=== PATIENT | female | born 1960 | race Caucasian/White ===

== ENCOUNTER 2022-04-15 07:54 | Observation (INO) ==
--- NOTE | 2022-04-10 15:25 | Anesthesiology Consultation ---
Date of Service April 10, 2022 Assessment & Plan (1) Encounter for pre-operative examination: Plan - check BSG am DOS. - right arm restriction. - PCP clearance 03/25/22: "...pre op clearance right total knee...intermediate risk...previously scheduled for right TKA on 02/25/22, however the surgery had to be delayed due to an UTI...all urinary symptoms have resolved; also with no further concerns of yeast infection...RCRI class I...medically optimized to proceed with surgical intervention..." - Outpatient joint assessment: Patient is currently scheduled for inpatient pathway. If re-evaluated pending system levels during current pandemic/surgeon requests outpatient pathway, patient is not recommended candidate for outpatient joint program from anesthesia standpoint. - COVID screening: Per cribber on 04/10/2022: Travel screen negative, no known COVID-19 positive contacts or current COVID-19 related symptoms in past 2 weeks. To surgeon's discretion if preop COVID testing is needed. Chart Review Chart Review: Acceptable Risk for Surgery and Patient NOT seen in Pre Admission Testing History Surgery Operation Date: 04/15/22 07:00 Proposed Procedures p Right Total Knee Arthroplasty - Wolfgang Bajwa MD Height/Weight Height: 4 ft 11 in Weight: 108.409 kg Allergies Allergy/AdvReac Type Severity Reaction Status Date / Time Penicillins Allergy Intermediate Rash Verified 03/13/22 13:05 Sulfa (Sulfonamide Allergy Intermediate Rash Verified 03/13/22 13:05 Antibiotics) Medications Home Medications Medication Instructions Recorded Confirmed Last Taken chlorthalidone 25 mg tablet 25 mg PO QAM 11/29/20 04/10/22 02/24/22 10:00 duloxetine 60 mg capsule,delayed 90 mg PO QAM 11/29/20 04/10/22 02/25/22 06:00 release (Cymbalta) lisinopril 40 mg tablet 40 mg PO QDL 11/29/20 04/10/22 02/24/22 23:00 oxycodone-acetaminophen 10 mg-325 1 tab PO TID PRN Pain 11/29/20 04/10/22 02/25/22 06:00 mg tablet (Percocet) zolpidem 10 mg tablet (Ambien) 10 mg PO HS 11/29/20 04/10/22 02/24/22 23:00 albuterol sulfate 90 mcg/actuation 2 puff inhalation QID PRN 12/09/21 04/10/22 02/24/22 23:00 aerosol inhaler (Ventolin HFA) Shortness Of Breath Or Wheezing gabapentin 600 mg tablet 1,800 mg PO HS 12/09/21 04/10/22 02/24/22 19:00 levothyroxine 137 mcg tablet 137 mcg PO QAM 12/09/21 04/10/22 02/25/22 06:00 pantoprazole 40 mg tablet,delayed 40 mg PO QDL 12/09/21 04/10/22 02/24/22 12:00 release sitagliptin phosphate 100 mg 100 mg PO QAM 12/09/21 04/10/22 02/24/22 10:00 tablet (Januvia) Past Medical History Medical History Asthma WELL CONTROLLED W/ INHALER, USES ABOUT ONCE PER WEEK Depression Diabetes NIDDM Fibromyalgia GERD (gastroesophageal reflux disease) controlled, stable per pt History of blood transfusion 1970s during miscarriage History of COVID-19 07/2021- CROFT, NASAL CONGESTION, COUGH-- NO HOSPITALZATION, RESOLVED 02/2020-CROFT, NASAL CONGESTION, BODY ACHES, FATIGUE-RESOLVED 04/2021-" " History of esophageal dilatation pt states last performed 12/2018, infrequent sensation of difficulty swallowing, denies choking History of malignant neoplasm of breast right arm restriction History of seizure LAST ONE- 2 1/2 YRS- CONTROLLED W/ GABAPENTIN HTN (hypertension) controlled, stable per pt Hx of breast cancer 2019 RADIATION ~ FOLLOWS W/ DR [facility]-right arm restriction Hypothyroid Limb alert care status right arm restriction Morbid obesity Sinus infection reason for abx. last dose 01/23/22-pt reports symptoms have fully resolved Sleep apnea not currently using CPAP d/t difficulty obtaining supplies Past Family History Family History Mother Breast cancer, Onset Age: 65 Cervical cancer, Onset Age: 40 Myocardial infarction Grandmother (Maternal) Myocardial infarction Grandfather (Maternal) Stroke Denies family history of Ovarian cancer Prostate cancer Colorectal cancer Past Surgical History Surgical History H/O splenectomy H/O thyroidectomy History of cholecystectomy History of esophagogastroduodenoscopy (EGD) History of total left knee replacement Hx of cardiac catheterization >20 YRS AGO - NO STENTS, NO BLOCKAGE FOUND Hx of colonoscopy Hx of mastectomy W/ RECONSTRUCTION Hx of rotator cuff surgery LEFT Hx of tonsillectomy Hx of tubal ligation S/P appendectomy Social History Smoking Status: Never smoker Do You Dip or Chew Tobacco: No Hx Alcohol Use: No Hx Substance Use: No substance use type: does not use Testing Laboratory Results 04/08/2022 WBC: 7 H/H: 12/38 PLATELETS: 411 SODIUM: 137 POTASSIUM: 3.5 CHLORIDE: 99 CO2: 32 BUN: 17 CREATININE: 1.1 GLUCOSE: 107 PT: 11 PTT: 28 INR: 1 Electrocardiogram Date: 02/07/22 NSR, rate 70 bpm Cannot rule out inferior infarct, age undetermined Chest X-Ray Date: 02/07/22 Cardiomediastinal and hilar silhouettes are within normal limits. Atherosclerosis of the aorta. There is no pneumothorax, pleural effusion, or overt pulmonary edema. Mild interstitial coarsening of the lung bases. Degenerative changes of the shoulders and spine. Surgical clips project over the left abdomen. IMPRESSION: No acute process Other Testing Whole body scan 12/26/21 No suspicious areas of radiotracer uptake to suggest metastatic disease.
[~2022-04-15 07:54] MED LIST: ACETAMINOPHEN 500 MG TAB PO SCH; BUPIVACAINE 0.5 % 5 MG/1 ML MPF 30ML VIAL ONE; CeleBREX 200 MG CAP PO SCH; EPINEPHrine INJ 1 MG/ML AMP ONE; FAMOTIDINE 20 MG TAB PO SCH; GABAPENTIN 600 MG DOSE PO SCH; LR 500ML BOLUS, THEN 15ML/HR IV SCH; METOCLOPRAMIDE HCL 10 MG TABLET PO SCH; ROPIVACAINE 0.5% 5 MG/ML 30 ML VIAL ONE; ROPIVACAINE 0.5% HCL/PF 150 MG, BUPIVACAINE 0.75% MPF 20 ML, EPINEPHrine 0.15 MG, Ketor... INFIL SCH; TRANEXAMIC ACID 1,000 MG **IV Intra-op IV SCH; TRANEXAMIC ACID 1,000 MG **IV Pre-op IV SCH; ceFAZolin 2000MG 2,000 MG/15 ML SYR IV SCH; cloNIDine HCL 0.1 MG/24 HR TRANSDERM SYS TD SCH; dexAMETHasone 4 MG TAB PO SCH; oxyCODONE HCL 10 MG TABCR (OxyCONTIN) PO SCH
[2022-04-15] MEDS ORDERED: PROPOFOL IV EMULSION 10 MG/ML 20 ML VIAL IV ONE ×2 (08:14→12:36)
[2022-04-15] MEDS ORDERED: MIDAZOLAM HCL 1 MG/ML 2ML VIAL ONE ×3 (08:14→11:11)
--- NOTE | 2022-04-15 08:56 | History & Physical Bridge Note ---
Date of Service April 15, 2022 History & Physical Bridge Note I have examined the patient, reviewed the History & Physical and in the interval since the performance of the History & Physical I have noted the following changes of clinical significance: no changes noted
[2022-04-15] MEDS: CHECK CLONIDINE PATCH PLACEMENT SCH ×4 (08:59→23:03)
[2022-04-15] MEDS ORDERED: ORTHO JOINT ANESTHETIC ONE (09:42)
[2022-04-15] MEDS ORDERED: VANCOMYCIN HCL 1000MG/20ML VIAL ONE (09:42)
[2022-04-15] MEDS ORDERED: ePHEDrine sulfate 50 MG/ML AMP ONE (10:23)
[2022-04-15] MEDS ORDERED: PHENYLEPHRINE 100MCG/ML 5ML SYR ONE (10:23)
[2022-04-15] MEDS ORDERED: PHENYLEPHRINE HCL 10 MG/ML VIAL ONE (10:54)
--- NOTE | 2022-04-15 12:45 | Operative Report ---
Post Operative Report Pre & Post Diagnosis Operation Date: 04/15/22 09:50 Pre-Op Diagnosis: Right knee osteoarthritis. Post-Op Diagnosis: Right knee osteoarthritis. I identified the patient and participated in the time-out.: Yes Procedure Operation Date: 04/15/22 09:50 Actual Procedures p Right Total Knee Arthroplasty(Right) - Wolfgang Bajwa MD Surgeon Wolfgang Bajwa MD Rat Trapper Alfreda Macdonald no resident or fellow available Estimated Blood Loss 10 Findings Consistent with Post-Op Diagnosis Specimens Bone and soft tissue right knee Drains None Anesthesia Type MAC Spinal Regional Complications none Disposition Accompanied Patient To Recovery: No Disposition: Recovery Room Indications Lily is 61 years old and has severe osteoarthritis of her right knee refractory to nonsurgical treatment. She wishes to have her knee replaced. Description of Procedure Informed consent obtained. Patient identified. She identified the operative site as the right knee. I marked with my initials. Preoperative surgical timeout performed. Preop dose of IV antibiotics given. TXA given. She was positioned supine on the OR table. A bump under the right hip. A padded post under the right calf and a tourniquet on the right thigh. The leg was prescribed and then prepped and draped in the usual sterile fashion. DVT prophylaxis intraoperatively with foot pumps. Postoperatively mechanical devices Lovenox and early mobility. The examination under anesthesia revealed 1+ MCL laxity in mid position otherwise stable range of motion 0/5/110. Limb exsanguinated with the Esmarch. Tourniquet inflated 275 mmHg. Midline longitudinal incision made. Approximately 20 cm. Extended distally to avoid tension on the apex of the incision. This was followed by medial parapatellar arthrotomy. There was severe arthritis of the patella with substantial wear of the lateral facet. Large osteophytes were removed about the patella. There are also significant osteophytes about the femur especially medial and tibia medially. There was grade 4 change with worn eburnated bone in the medial compartment with a deficient medial meniscus. Intact cruciates. Notch osteophytes. Intact lateral meniscus and lateral cartilage. No loose bodies were identified. The soft tissue on the anterior aspect of the distal femur was resected. The retropatellar fat pad was resected. An extensile medial release was performed. The synovial reflection in the lateral gutter was released. Cruciate ligaments were resected after gently flexing the knee with the patella everted. The tibia was then subluxated and the remnants of the menisci and osteophytes and further medial releasing were performed. A instructor pilot hole was drilled into the proximal tibia just in front of and between the tibial spines. The intramedullary alignment christopher was introduced and aligned with the tibial tubercle. Set to resect 10 off of the lateral high side corresponding to a 4 mm cut medially. The guide was pinned into place and this cut was made. 0 degree block. Sized to a 2.0. Attention was turned to the femur where a instructor pilot hole was drilled into the distal femur just above the PCL. The guide was inserted and set to resect 14 mm of bone at a 6 degree right knee valgus angle based upon preoperative templating and flexion contracture. The collateral ligaments were protected and this cut was distal to the collateral ligaments. The cut was made. The epicondylar axis was marked out. The extension gap was a symmetric 10. The distal femoral sizing guide was applied. Sized to a 2.5. External rotation drill holes were made which matched the epicondylar axis. Anterior posterior and chamfer cuts were made protecting the collateral ligaments. The box cutting guide was applied and lateralized pinned in place and the box cut was made. Osteophytes in the back of the knee were removed. The flexion gap was a loose 10. I then upsized the 12.5 and had good stability in 90 degrees flexion and full extension without flexion contracture. The extension gap was also symmetric 12.5. The size 2.5 trial femur was applied. The tibia was exposed. The tibial tray was aligned to the tibial tubercle lateralized as far as possible with some exposed posterior medial bone and full coverage of the plate. It was pinned into place and then the keel was drilled and punched. Trialing was then performed showing full extension of the knee neutral alignment no laxity at full extension trace MCL laxity in mid position and 90 degrees flexion otherwise stable. Attention was turned to the patella. Patellar thickness was measured at 20 however the lateral facet was substantially warned and was probably about 12 mm thick. I set the guide to preserve 13 mm of bone applied it with the patella centralized and not tilted. The cut was made which gave a skim cut laterally. The residual patellar thickness was 12 mm. The 32 mm paddle was applied distal lysed and medialized. It was then aligned to the trochlea with the knee in slight flexion. The lug holes were drilled. Patellar tracking was lateral with no hands technique. The trial components were removed from the knee the bony surfaces were meticulously prepared with pulsatile lavage and the canals were plugged. Ortho joint mix was injected into the back the knee. 2 bags of Simplex P cement were mixed with 4 g of powdered vancomycin. Smears were placed on the posterior condyles and while in a doughy workable state the femur tibia and patella were cemented into place held and placed in full extension with clamp on the patella. Extraneous cement was removed. The remainder the Ortho joint mix was injected and the knee was thoroughly irrigated. Soft tissue was kept moist throughout the surgical procedure with a lap sponge. After the cemented hardened at 100 minutes the tourniquet was let down and meticulous hemostasis was performed with minimal bleeding. Composite patellar thickness was 20 mm. When the extensor mechanism was close gravity assisted flexion was 110 degrees. Patellar tracking with a tourniquet let down was fine and no lateral release was required. Stability was as mentioned previously and the final 12.5 mm thick poly was inserted. The back the knee was inspected for cement and removed were encountered. Irrigation was performed and meticulous hemostasis was achieved. The knee was reduced and then closed. The extensor mechanism was closed above the equator of the patella with interrupted #2 FiberWire. Below the equator the patella with running and interrupted #1 Vicryl. The skin was closed in layers with 0 and 2-0 Vicryl followed by natan on the skin. The leg was cleaned with wet and dry sponges and a soft roll dressing was applied Xeroform 4 x 4 ABD soft wrap full-length Yared wrap and a knee immobilizer. Patient was then awake from anesthesia without difficulty and taken to the recovery room in stable condition. There were no complications. Counts were correct. Resected bone and soft tissue were sent for specimen. At the conclusion of the operation I contacted patient's family informed of my findings and discussed the surgical procedure. Blood loss estimated to be 10 cc. A second dose of TXA was given. She will be rehabilitated according to the total knee protocol. She can weight-bear as tolerated. We will apply a incisional wound VAC tomorrow. Components inserted with a [employer] PFC Sigma rotating platform knee a size 2.5 right posterior stabilized femur 32 mm 3 peg oval dome patella size 2 mobile-bearing keeled tibial tray and a size 2.5 x 12.5 mm thick polyethylene posterior stabilized insert. I attest to the content of the Intraoperative Record and any orders documented therein. Any exceptions are noted below.
--- NOTE | 2022-04-15 12:53 | Operative Report ---
Post Operative Report Pre & Post Diagnosis Operation Date: 04/15/22 09:50 Pre-Op Diagnosis: Right knee osteoarthritis. Post-Op Diagnosis: Right knee osteoarthritis. I identified the patient and participated in the time-out.: Yes Procedure Operation Date: 04/15/22 09:50 Actual Procedures p Right Total Knee Arthroplasty(Right) - Wolfgang Bajwa MD Surgeon Wolfgang Bajwa M.D. Fish Trapper Alfreda Macdonald PA-C; no resident or fellow available Estimated Blood Loss 10 Findings Consistent with Post-Op Diagnosis Specimens bone and soft tissue Anesthesia Type General Regional Description of Procedure Patient was taken to the operating room, placed under general anesthesia. Time out performed, prepped and draped in routine sterile fashion. I was present during the entire case, please see Dr. Bajwa's operative report for further detail. Patient was awakened and taken to the recovery room in stable c ondition. I attest to the content of the Intraoperative Record and any orders documented therein. Any exceptions are noted below.
--- NOTE | 2022-04-15 13:08 | Anesthesiology Progress Note ---
Date of Service April 15, 2022 Anesthesia Post Procedure Vital Signs Vital Signs: Temp Pulse Pulse Resp BP Pulse Ox O2 Del Method 04/15/22 13:00 36.6 C 98 H 12 124/63 96 Nasal Cannula 04/15/22 12:50 36.6 C 96 H 17 121/64 96 Nasal Cannula 04/15/22 12:39 36.6 C 100 H 14 121/65 98 Oxymask 04/15/22 08:34 Room Air 04/15/22 08:34 36.7 C 75 16 151/81 H 98 Room Air O2 Flow Rate 04/15/22 13:00 3 04/15/22 12:50 3 04/15/22 12:39 7 04/15/22 08:34 04/15/22 08:34 Pain Intensity Right Knee: Pain Intensity: 0 Transfer of Care Handoff Completed per policy Notes Mental Status: alert / awake / arousable Patient Amnestic to Procedure: Yes Nausea / Vomiting: adequately controlled Pain: adequately controlled Airway Patency, RR, SpO2: stable & adequate BP & HR: stable & adequate Hydration State: stable & adequate Neuraxial Anesthesia: was administered and sensory block is resolving Anesthetic Complications: no major complications apparent
--- NOTE | 2022-04-15 13:47 | XRay Report ---
XR knee RT 1 or 2V routine HISTORY: 61 years-old Female Surgical Post Op right knee arthroplasty COMPARISON: 02/07/2022 TECHNIQUE: 2 views of the right knee FINDINGS: Total joint arthroplasty with patellar resurfacing. Anterior midline skin natan are noted along wit h expected postoperative soft tissue swelling with deep tissue air. No acute fracture, dislocation or unexpected opaque foreign body. IMPRESSION: Total joint arthroplasty with expected postoperative changes. ACT 112: Negative or not required by law. The above report was generated using voice recognition software. It may contain grammatical, syntax o r spelling errors. Electronically signed by: Brennan Person M.D. 04/15/2022 1:45 PM
[2022-04-15] MEDS ORDERED: ONDANSETRON INJ 2 MG/ML 2 ML VIAL IV PRN (14:01)
[2022-04-15] MEDS ORDERED: NALOXONE HCL 0.4 MG/1 ML VIAL/CARP IV PRN (14:01)
[2022-04-15] MEDS ORDERED: hydrALAZINE HCL 20 MG/ML VIAL IV PRN (14:01)
[2022-04-15] MEDS ORDERED: ALBUTEROL HFA 8 GM INHALER INH PRN (14:01)
[2022-04-15] MEDS ORDERED: MAGNESIUM HYDROXIDE SUSP 30 ML UDC PO PRN (14:01)
[2022-04-15] MEDS ORDERED: bisacodyL 10 MG SUPP PR PRN (14:01)
[2022-04-15] MEDS ORDERED: PHARMACY GLYCEMIC MGMT CONSULT PRN (14:01)
[2022-04-15] MEDS ORDERED: traMADol HCL 50 MG TABLET PO PRN (14:01)
[2022-04-15] MEDS ORDERED: SODIUM CHLORIDE 0.9% 1000ML 1,000 ML IV SCH (14:01)
[2022-04-15] MEDS ORDERED: NovoLIN-N (NPH) PER UNIT CHARGE SQ ONE (14:45)
[2022-04-15] MEDS: KETOROLAC TROMETHAMINE 15 MG/ML VIAL IV SCH ×2 (15:23→21:35)
[2022-04-15] MEDS: INSULIN ASPART PER UNIT SC SCH ×3 (15:30→21:34)
[2022-04-15] MEDS: oxyCODONE/ACETAMINOPHEN 10-325 TAB PO PRN (16:34)
[2022-04-15] MEDS: ceFAZolin 2000MG 2,000 MG/15 ML SYR IV SCH (18:30)
--- NOTE | 2022-04-15 18:33 | Orthopedic Progress Note ---
Date of Service April 15, 2022 Assessment & Plan (1) Status post total right knee replacement: Plan: POD 0 - right TKA with Dr. Bajwa PT/OT as ordered Glycemic control consult Regular diet Lovenox to start tonight - 30mg BID x 2-4 weeks post op. Ice and elevation PRN pain/swelling Keep dressing intact, reinforce as needed, will plan to apply Prevena tomorrow. Dr. Bajwa present for today's visit Will re-eval in AM Case management for disposition needs Pain medication as prescribed. Admission and Anticipated Discharge Date Admission Date: April 15, 2022 Subjective Patient resting in bed. Comfortable now, but had "excruciating pain" earlier. She is tolerating regular diet. Has been out of bed to the bathroom. Physical Exam Musculoskeletal: Dressing right knee clean, dry and intact. Distal pulses 1+, foot is warm, norm al sensation. Strength right ankle 5/5. Results & Data ([facility]) Vital Signs (Past 12 Hours) Vital Signs Temp Pulse Pulse Resp BP BP Pulse Ox 04/15/22 18:13 36.7 C 98 H 17 108/63 94 04/15/22 17:02 36.4 C L 99 H 18 107/65 93 04/15/22 16:03 36.6 C 90 18 127/74 93 04/15/22 15:06 36.7 C 93 H 17 119/77 95 04/15/22 14:30 36.4 C L 95 H 18 127/78 95 04/15/22 14:03 36.4 C L 100 H 17 106/65 95 04/15/22 13:30 36.6 C 97 H 10 L 119/63 95 04/15/22 13:15 36.6 C 96 H 12 120/66 95 04/15/22 13:10 36.6 C 98 H 12 121/70 96 04/15/22 13:00 36.6 C 98 H 12 124/63 96 04/15/22 12:50 36.6 C 96 H 17 121/64 96 04/15/22 12:39 36.6 C 100 H 14 121/65 98 04/15/22 08:34 04/15/22 08:34 36.7 C 75 16 151/81 H 98 O2 Del Method O2 Flow Rate 04/15/22 18:13 Room Air 04/15/22 17:02 Room Air 04/15/22 16:03 Room Air 04/15/22 15:06 Room Air 04/15/22 14:30 Nasal Cannula 2 04/15/22 14:03 Nasal Cannula 2.5 04/15/22 13:30 Nasal Cannula 3 04/15/22 13:15 Nasal Cannula 3 04/15/22 13:10 Nasal Cannula 3 04/15/22 13:00 Nasal Cannula 3 04/15/22 12:50 Nasal Cannula 3 04/15/22 12:39 Oxymask 7 04/15/22 08:34 Room Air 04/15/22 08:34 Room Air Diagnostic Findings XR knee RT 1 or 2V routine HISTORY: 61 years-old Female Surgical Post Op right knee arthroplasty COMPARISON: 02/07/2022 TECHNIQUE: 2 views of the right knee FINDINGS: Total joint arthroplasty with patellar resurfacing. Anterior midline skin natan are noted along with expected postoperative soft tissue swelling with deep tissue air. No acute fracture, dislocation or unexpected opaque foreign body. IMPRESSION: Total joint arthroplasty with expected postoperative changes.
[2022-04-15] MEDS: ENOXAPARIN INJ 30 MG/0.3 ML SYR SQ SCH (20:13)
[2022-04-15] MEDS: DOCUSATE SODIUM 100 MG CAP PO SCH (20:14)
[2022-04-15] MEDS: GABAPENTIN 600 MG TAB PO SCH (20:15)
[2022-04-15] MEDS: SENNA 8.6 MG TAB PO SCH (20:15)
[2022-04-15] MEDS: HYDROmorphone INJ 0.5 MG/0.5 ML SYR IV PRN (23:11)
[2022-04-16] MEDS: ceFAZolin 2000MG 2,000 MG/15 ML SYR IV SCH (02:24)
[2022-04-16] MEDS: oxyCODONE/ACETAMINOPHEN 10-325 TAB PO PRN ×2 (02:30→12:55)
[2022-04-16] MEDS: KETOROLAC TROMETHAMINE 15 MG/ML VIAL IV SCH ×2 (04:15→09:53)
[2022-04-16] MEDS: LEVOTHYROXINE SODIUM 137 MCG TABLET PO SCH (05:46)
[2022-04-16 07:36] LABS: Hematocrit (blood only) 28.7 % (37.0-47.0); Hemoglobin 9.9 g/dl (12.0-16.0); Mean Corpuscular Hemoglobin 33.3 pg (25.0-34.0); Mean Corpuscular Hgb Conc 34.5 g/dL (32.0-36.0); Mean Corpuscular Volume 96.6 fL (80.0-100.0); Mean Platelet Volume 10.2 fL (9.4-12.4); Platelet Count 333 K/uL (130-400); RDW Coefficient of Variation 12.8 % (11.5-14.5); RDW Standard Deviation 45.5 fL (36.4-46.3); Red Blood Count 2.97 M/uL (4.20-5.40); White Blood Count 16.84 K/ul (4.8-10.8)
[2022-04-16 07:48] LABS: BUN Creatinine Ratio 22.4 (10-20); Calcium 9.1 mg/dl (8.5-10.1); Creatinine Clr Calc Pharmacy 60.6 ml/min; Est GFR (African American) 64.9 ml/min; Potassium 4.2 mmol/L (3.5-5.1)
[2022-04-16] MEDS: CHECK CLONIDINE PATCH PLACEMENT SCH ×3 (08:07→23:12)
[2022-04-16] MEDS: CHLORTHALIDONE 25 MG TAB PO SCH (08:08)
[2022-04-16] MEDS: DULoxetine HCL 30 MG CAP PO SCH (08:09)
[2022-04-16] MEDS: MULTIVITAMIN TAB PO SCH (08:10)
[2022-04-16] MEDS: DOCUSATE SODIUM 100 MG CAP PO SCH ×2 (08:10→19:47)
[2022-04-16] MEDS ORDERED: SITagliptin PHOSPHATE 100 MG TAB PO SCH (09:00)
[2022-04-16] MEDS: oxyCODONE HCL IR 5 MG TAB (IMMEDIATE RELEASE) PO PRN ×2 (09:04→19:46)
[2022-04-16] MEDS: INSULIN ASPART PER UNIT SC SCH ×4 (09:06→20:52)
[2022-04-16] MEDS: ENOXAPARIN INJ 30 MG/0.3 ML SYR SQ SCH ×2 (09:50→19:47)
--- NOTE | 2022-04-16 10:15 | Discharge Summary ---
Date of Service April 16, 2022 Discharge Data Procedures Performed Operation Date: 04/15/22 09:50 Actual Procedures p Right Total Knee Arthroplasty(Right) - Wolfgang Bajwa MD Hospital Course (1) Status post total right knee replacement: Patient was admitted to [facility] for observation after undergoing an elective left total knee arthroplasty by Dr. Bajwa on April 07, 2022. Her surgery was performed with spinal anesthesia with peripheral nerve block. She tolerated the procedure well without any intraoperative complications. She was given 2 g of IV Ancef for surgical prophylaxis which was continued for 24 hours after surgery. Postoperative x-rays were done in the recovery room which showed a stable prosthesis of her left knee. She was allowed out of bed, weightbearing as tolerated with the assistance of a walker and a knee immobilizer. Physical therapy and Occupational Therapy consults were placed for evaluation prior to discharge. Her home medications were resumed. A glycemic consult was placed for inpatient management of her Diabetes. She was started on Lovenox 30 mg twice daily for DVT prophylaxis which will be continued for 2 to 4 weeks after surgery. She was provided pain medication after surgery which included Toradol, tramadol, oxycodone, IV Dilaudid and oral Tylenol. In addition to her Percocet 10-325 mg every 8 hours. Postoperative CBC, BMP was performed and within normal limits. She was too painful to leave on post op day 1, she continued to require IV dilaudid for control. On postoperative day 1 her surgical dressing was removed and a Prevena incisional wound VAC was applied. This will remain on for 7 days. She was kept another day for pain control. She was deemed safe for discharge to her home with the physical therapist and occupational therapist on POD 2. Case management was involved for disposition needs. She was discharged to her home in stable condition with home health services on April 17, 2022. Discharge instructions were provided. All questions were answered.
[2022-04-16] MEDS: PANTOprazole 40 MG TAB PO SCH (11:41)
[2022-04-16] MEDS: lisinopril 40 MG TAB PO SCH (11:42)
--- NOTE | 2022-04-16 12:29 | Pharmacy Report ---
Pharmacy Glycemic Short Note 2 - Date of Service April 16, 2022 - Glycemic Short BSG Results (Last 24 hours): 04/15/22 04/15/22 04/15/22 12:43 14:51 16:57 Glucose POC Glucose 163 H 190 H 244 H 04/15/22 04/16/22 04/16/22 20:42 06:54 08:08 Glucose 140 H POC Glucose 151 H 101 H 04/16/22 12:06 Glucose POC Glucose 99 OUTPATIENT ANTIDIABETIC REGIMEN: * Januvia 100 mg PO daily * HbA1C = 5.9% (02/07/22) ASSESSMENT: * Ms Pascual is a 61 y/o F with a PMH of T2DM who presents for R TKA. * BSG prior to surgery was 114 mg/dL. Patient received dexamethasone 8 mg PO preop. * After surgery, BSGs were 190/244-151 mg/dL. Patient received 20 units of NPH and 20 units of bolus insulin. * BSGs today were 101-99 mg/dL. * Hold NPH since no additional steroids given. * Loosen Novolog since steroid effects dissipated + BSGs trending downwards. PLAN FOR INPATIENT GLYCEMIC CONTROL: * Basal insulin * HOLD * Bolus insulin * NovoLog per scale ACHS or Q6hrs while NPO * Goal Range: Low 110 mg/dL - High 140 mg/dL * Correction Factor: 45 mg/dL/unit * Nutritional / Prandial insulin per carb ratio of 1 unit per 15 grams CHO consumed
--- NOTE | 2022-04-16 12:32 | Orthopedic Progress Note ---
Date of Service April 16, 2022 Assessment & Plan (1) Status post total right knee replacement: Plan: POD 1 - Status post right total knee arthroplasty with Dr. Bajwa on April 15, 2022 PT and OT. She may weight-bear as tolerated with use of the walker and knee immobilizer when out of bed. Carolee placed on her right knee today. This remains on for 7 days. LISSETT stockings for DVT prophylaxis and swelling control. Lovenox 30 mg twice daily for DVT prophylaxis. Please train patient on how to give herself the Lovenox injections. Pain medication as prescribed. I will discuss with the nurse about giving her her IV Dilaudid pain medication. Plan is to go home with home health when her pain is controlled. We will reassess this afternoon and possibly discharge as early this evening if she is much more comfortable. She may need to stay another night for pain control. Dr. Bajwa present for today's visit. Case management for disposition needs. Admission and Anticipated Discharge Date Admission Date: April 15, 2022 Subjective Patient sitting in bed. States that her pain is much worse today. She states that the oxycodone IR and Percocet are helping with her pain but it is pretty significant. She has been able to participate in OT and PT. She states that her occupational therapist said she did very well. She has been out of bed with a walker. Denies any chest pain, shortness of breath, nausea, vomiting, diarrhea or constipation. Denies any numbness or tingling. She states that she wished that she could have her IV pain medication although the nurse held that for possible discharge later today. Physical Exam Musculoskeletal: Exam of her right knee: Incision is clean, dry and intact. Hafsa are retained. No active drainage. No effusion. No underlying seroma or hematoma. She tolerates extension of her knee. No distal edema. Distal pulses are 1+. Strength of her right ankle with dorsiflexion, plantarflexion, inversion and eversion is 5/5. She is unable to independently straight leg raise right lower extremity. Tolerates hip range of motion without discomfort.. She tolerates gentle passive range of motion to about 20 to 30 degrees today. Results & Data ([facility]) Vital Signs (Past 12 Hours) Vital Signs Temp Pulse Resp BP Pulse Ox O2 Del Method 04/16/22 11:34 36.7 C 86 18 121/67 98 Room Air 04/16/22 08:05 123/64 04/16/22 07:13 36.9 C 81 18 107/47 L 93 Room Air 04/16/22 03:35 36.8 C 89 18 112/66 96 Room Air Laboratory Results 04/16/22 04/16/22 04/16/22 Range/Units 12:06 08:08 06:54 WBC (4.8-10.8) K/ul RBC (4.20-5.40) M/uL Hgb (12.0-16.0) g/dl Hct (37.0-47.0) % MCV (80.0-100.0) fL MCH (25.0-34.0) pg MCHC (32.0-36.0) g/dL RDW Std Deviation (36.4-46.3) fL RDW Coeff of Jame (11.5-14.5) % Plt Count (130-400) K/uL MPV (9.4-12.4) fL Sodium 137 (136-145) mmol/L Potassium 4.2 (3.5-5.1) mmol/L Chloride 102 (98-107) mmol/L Carbon Dioxide 29 (21-32) mmol/L Anion Gap 6 (3-11) BUN 24 H (6-23) mg/dl Creatinine 1.07 (0.6-1.2) mg/dl Est Cr Clr Drug Dosing 60.6 ml/min Est GFR ( Amer) 64.9 ml/min Est GFR (Non-Af Amer) 56.0 ml/min BUN/Creatinine Ratio 22.4 H (10-20) Glucose 140 H (70-99(Fasting)) mg/dl POC Glucose 99 101 H (70-99) mg/dl Calcium 9.1 (8.5-10.1) mg/dl 04/16/22 04/15/22 04/15/22 Range/Units 06:54 20:42 16:57 WBC 16.84 H (4.8-10.8) K/ul RBC 2.97 L (4.20-5.40) M/uL Hgb 9.9 L (12.0-16.0) g/dl Hct 28.7 L (37.0-47.0) % MCV 96.6 (80.0-100.0) fL MCH 33.3 (25.0-34.0) pg MCHC 34.5 (32.0-36.0) g/dL RDW Std Deviation 45.5 (36.4-46.3) fL RDW Coeff of Jame 12.8 (11.5-14.5) % Plt Count 333 (130-400) K/uL MPV 10.2 (9.4-12.4) fL Sodium (136-145) mmol/L Potassium (3.5-5.1) mmol/L Chloride (98-107) mmol/L Carbon Dioxide (21-32) mmol/L Anion Gap (3-11) BUN (6-23) mg/dl Creatinine (0.6-1.2) mg/dl Est Cr Clr Drug Dosing ml/min Est GFR ( Amer) ml/min Est GFR (Non-Af Amer) ml/min BUN/Creatinine Ratio (10-20) Glucose (70-99(Fasting)) mg/dl POC Glucose 151 H 244 H (70-99) mg/dl Calcium (8.5-10.1) mg/dl 04/15/22 04/15/22 Range/Units 14:51 12:43 WBC (4.8-10.8) K/ul RBC (4.20-5.40) M/uL Hgb (12.0-16.0) g/dl Hct (37.0-47.0) % MCV (80.0-100.0) fL MCH (25.0-34.0) pg MCHC (32.0-36.0) g/dL RDW Std Deviation (36.4-46.3) fL RDW Coeff of Jame (11.5-14.5) % Plt Count (130-400) K/uL MPV (9.4-12.4) fL Sodium (136-145) mmol/L Potassium (3.5-5.1) mmol/L Chloride (98-107) mmol/L Carbon Dioxide (21-32) mmol/L Anion Gap (3-11) BUN (6-23) mg/dl Creatinine (0.6-1.2) mg/dl Est Cr Clr Drug Dosing ml/min Est GFR ( Amer) ml/min Est GFR (Non-Af Amer) ml/min BUN/Creatinine Ratio (10-20) Glucose (70-99(Fasting)) mg/dl POC Glucose 190 H 163 H (70-99) mg/dl Calcium (8.5-10.1) mg/dl
[2022-04-16] MEDS: ACETAMINOPHEN 325 MG TAB PO PRN (16:29)
[2022-04-16] MEDS: HYDROmorphone INJ 0.5 MG/0.5 ML SYR IV PRN ×2 (16:52→22:10)
[2022-04-16] MEDS: GABAPENTIN 600 MG TAB PO SCH (19:48)
[2022-04-16] MEDS: SENNA 8.6 MG TAB PO SCH (19:48)
[2022-04-16] MEDS: CeleBREX 200 MG CAP PO SCH (19:49)
[2022-04-17] MEDS: ACETAMINOPHEN 325 MG TAB PO PRN ×2 (00:47→10:40)
[2022-04-17] MEDS: oxyCODONE HCL IR 5 MG TAB (IMMEDIATE RELEASE) PO PRN ×2 (02:59→09:26)
[2022-04-17] MEDS: oxyCODONE/ACETAMINOPHEN 10-325 TAB PO PRN ×2 (04:23→11:46)
[2022-04-17] MEDS: LEVOTHYROXINE SODIUM 137 MCG TABLET PO SCH (05:42)
[2022-04-17] MEDS: DULoxetine HCL 30 MG CAP PO SCH (08:37)
[2022-04-17] MEDS: CeleBREX 200 MG CAP PO SCH (08:37)
[2022-04-17] MEDS: CHLORTHALIDONE 25 MG TAB PO SCH (08:37)
[2022-04-17] MEDS: DOCUSATE SODIUM 100 MG CAP PO SCH (08:38)
[2022-04-17] MEDS: MULTIVITAMIN TAB PO SCH (08:38)
[2022-04-17] MEDS: ENOXAPARIN INJ 30 MG/0.3 ML SYR SQ SCH (08:38)
[2022-04-17] MEDS: CHECK CLONIDINE PATCH PLACEMENT SCH (08:38)
[2022-04-17] MEDS: INSULIN ASPART PER UNIT SC SCH ×2 (08:40→12:57)
--- NOTE | 2022-04-17 09:47 | Orthopedic Progress Note ---
Date of Service April 17, 2022 Assessment & Plan (1) Status post total right knee replacement: Plan: Anticipate discharge to home today after PT/OT. Continue the Prevena wound VAC and follow-up in the office in 6 days for removal. Additional pain medication will be sent to her pharmacy. Continue Lovenox. Continue with ice, elevation, and use of LISSETT hose for pain and edema control. Follow-up in the office in 2 weeks as well for staple removal. Call with any other concerns. Admission and Anticipated Discharge Date Admission Date: April 15, 2022 Subjective Patient is seen in her room this morning. She is postop day 2 from right total knee arthroplasty. She states she feels ready to go home today. She still has pain, but it has been more tolerable. She feels the Prevena wound VAC has helped bring her swelling down. No new complaints. She denies any chest pain or shortness of breath. No nausea or vomiting. Physical Exam Physical Exam: Right knee evaluation reveals her Prevena wound VAC to be intact and functioning. There is no drainage in the tube. There is no drainage in the canister. Expected postoperative edema. Her LISSETT hose are in place. Patient has intact motor function of her hip, knee, and ankle. She is unable to perform a straight leg raise today. She can flex and extend her knee as well as plantar flex and dorsiflex her ankle. Motor function of the toes is intact. Neurologic: Gross sensation is intact across the right leg by soft touch. Peripheral pulses are 2+. Results & Data ([facility]) Vital Signs (Past 12 Hours) Vital Signs Temp Pulse Resp BP Pulse Ox O2 Del Method O2 Flow Rate 04/17/22 09:09 94 Room Air 04/17/22 07:46 36.5 C 80 16 127/75 94 Nasal Cannula 2 04/16/22 21:49 36.7 C 88 18 132/64 97 Nasal Cannula 2 Laboratory Results Glucose today is 130.
[2022-04-17] MEDS: PANTOprazole 40 MG TAB PO SCH (11:46)
[2022-04-17] MEDS: lisinopril 40 MG TAB PO SCH (11:46)
== END 2022-04-17 14:04 | disposition home health service (06) ==
LOC: 3W 07:54 → ASU 07:54